=== PATIENT | male | born 1985 | race Caucasian/White ===

== ENCOUNTER 2017-12-02 22:14 | Emergency (ER) | payer OTHER ==
[~2017-12-02] VITALS: Ht 188 cm; Wt 100.0 kg
[2017-12-02 22:29] VITALS: BP 134/89
[2017-12-02] MEDS ORDERED: OXYcodone/APAP 5/325MG TABLET ONE (22:59)
[2017-12-02] MEDS ORDERED: OXYcodone/APAP 5/325MG TABLET PO ONE (23:00)
== END 2017-12-02 23:55 | disposition home or self-care (01) ==
LOC: ED 23:49
DX: S83.91XA Sprain of unspecified site of right knee, initial encounter (principal); W01.0XXA Fall on same level from slipping, tripping and stumbling without subsequent striking against object, initial encounter; Y93.67 Activity, basketball; Y99.9 Unspecified external cause status; Y92.328 Other athletic field as the place of occurrence of the external cause
CPT/HCPCS: 99284